=== PATIENT | female | born 1980 | race Caucasian/White ===

== ENCOUNTER 2016-10-03 23:04 | Outpatient (CLI) | payer OTHER ==
[~2016-10-03] VITALS: Ht 180.3 cm; Wt 97.3 kg
[~2016-10-03 23:04] MED LIST: MOTRIN 600600 MG/TAB PO; PERCOCET 325 MG1 TA2 PO; PRENATAL1 TA1 PO
[2016-10-03 23:26] VITALS: BP 140/92; PULSE 117; TEMP 98.1
[2016-10-04] VITALS: BP 139/85; PULSE 88
[2016-10-04 00:31] VITALS: BP 142/88; PULSE 92
== END 2016-10-04 00:45 | disposition home or self-care (01) ==
LOC: LDRO 23:04
DX: O62.9 Abnormality of forces of labor, unspecified (principal); Z3A.40 40 weeks gestation of pregnancy

== ENCOUNTER 2016-10-11 06:58 | Inpatient (IN) | payer OTHER ==
[~2016-10-11] VITALS: Ht 180.3 cm; Wt 99.5 kg
[2016-10-11] VITALS (38 sets, daily range): BP systolic 104–144; BP diastolic 60–813; PULSE 54–105; TEMP 97.4–98.2
[2016-10-11 07:55] LABS: BASO # 0.1 (0.0-0.2); BASO % 0.5 % (0.0-2.0); EOS # 0.1 (0.0-0.7); EOS % 1.1 % (0-4.0); GRAN # 5.8 (1.4-6.5); GRAN % 62.8 % (42.2-75.2); HEMOGLOBIN 12.8 g/dl (12.5-16.0); LYMPH # 2.4 (1.2-3.4); LYMPH % 26.5 % (20.0-51.0); MEAN CELL VOLUME 88 fl (80.0-100.0); MEAN CORPUSCULAR HEMOGLOBIN 31 pg (27.0-31.0); MEAN CORPUSCULAR HGB CONC 36 g/dl (33.0-37.0); MEAN PLATELET VOLUME 10.1 fl (7.4-10.4); MONO # 0.7 (0.1-0.6); PLATELET COUNT 193 K/mm3 (130-400); RED BLOOD COUNT 4.07 M/mm3 (4.10-5.30); REDCELL DISTRIBUTION WIDTH-CV 13.2 % (11.5-14.5); WHITE BLOOD COUNT 9.2 K/mm3 (4.8-10.8)
[2016-10-11 08:35] LABS: HEMATOCRIT 35.8 % (37.0-47.0)
[2016-10-12] VITALS: BP 131/79; PULSE 86; TEMP 97.7
[2016-10-12 05:00] VITALS: BP 125/78; PULSE 76; TEMP 97.7
[2016-10-12 08:15] VITALS: BP 128/96; PULSE 90; TEMP 98
[2016-10-12] MEDS ORDERED: IBU800 M1 PO (09:13)
[2016-10-12 20:00] VITALS: BP 126/81; PULSE 76; TEMP 98.2
== END 2016-10-12 21:00 | disposition home or self-care (01) | DRG 767 ==
LOC: LDR 06:58 → OB 08:24
PROVIDERS: Student in an Organized Health Care Education/Training Program
PROC: 10E0XZZ Delivery of Products of Conception, External Approach (ICD-10-PCS; principal; 2016-10-11)
PROC: 10D17ZZ Extraction of Products of Conception, Retained, Via Natural or Artificial Opening (ICD-10-PCS; 2016-10-11)
PROC: 3E033VJ Introduction of Other Hormone into Peripheral Vein, Percutaneous Approach (ICD-10-PCS; 2016-10-11)
DX: O48.0 Post-term pregnancy (principal); O09.523 Supervision of elderly multigravida, third trimester; O99.824 Streptococcus B carrier state complicating childbirth; O69.89X0 Labor and delivery complicated by other cord complications, not applicable or unspecified; Z3A.40 40 weeks gestation of pregnancy; Z37.0 Single live birth
CPT/HCPCS: J2540; J2590; J2795; J7120